=== PATIENT | male | born 1980 | race Hispanic/Latino ===

== ENCOUNTER 2018-03-18 12:55 | Emergency (ER) | payer MEDICAID, OTHER ==
[2018-03-18 13:04] VITALS: BMI 38.3
--- NOTE | 2018-03-18 13:24 | C.PDOC ---
History Of Present Illness 37 y/o male, with no significant PMHx, presents to ED for evaluation of right foot 3rd digit blister with purulent discharge. Notes he has had similar presentation in his left foot about a month ago which improved after taking antibiotics. Notes he now has similar symptoms on his right foot for the past few days. Denies trauma, pain, fever, or other complaints. Time Seen by Provider: 03/18/18 13:21 Chief Complaint (Nursing): Lower Extremity Problem/Injury History Per: Patient History/Exam Limitations: no limitations Past Medical History Reviewed: Historical Data, Nursing Documentation, Vital Signs Vital Signs: Last Vital Signs Temp 98.2 F 03/18/18 13:04 Pulse 109 H 03/18/18 13:04 Resp 18 03/18/18 13:04 BP 149/102 H 03/18/18 13:04 Pulse Ox 97 03/18/18 13:04 - Medical History PMH: Anxiety, Depression Denies: Bipolar Disorder, Diabetes, Hepatitis, HIV, HTN, Personality Disorder, Chronic Kidney Disease, Schizophrenia, Seizures, Sexually Transmitted Disease - [facility] Procedures ALCOHOL DETOXIFICATION (12/10/13) DETOXIFICATION SERVICES FOR SUBSTANCE ABUSE TREATMENT (07/06/15) INDIV DAMAGED FREIGHT INSPECTOR FOR SUBSTANCE ABUSE TREATMENT, CONTINUING CARE (07/06/15) Family History: States: Unknown Family Hx - Social History Hx Tobacco Use: No Hx Alcohol Use: No Hx Substance Use: No - Immunization History Hx Tetanus Toxoid Vaccination: No Hx Influenza Vaccination: No Hx Pneumococcal Vaccination: No Review Of Systems Except As Marked, All Systems Reviewed And Found Negative. Constitutional: Negative for: Fever, Chills Skin: Positive for: Other (right foot 3rd digit blister) Neurological: Negative for: Weakness, Numbness Physical Exam - Physical Exam Appears: Non-toxic, No Acute Distress Skin: Warm, Dry, Other (minimal area of erythema to right foot 3rd digit with minimal purulent discharge) Head: Atraumatic, Normacephalic Eye(s): bilateral: Normal Inspection Oral Mucosa: Moist Neck: Normal ROM, Supple Extremity: Normal ROM, No Tenderness, Capillary Refill (less than 2 seconds), No Deformity, No Swelling Pulses: Left Dorsalis Pedis: Normal, Right Dorsalis Pedis: Normal Neurological/Psych: Oriented x3, Normal Speech, Normal Motor, Normal Sensation ED Course And Treatment O2 Sat by Pulse Oximetry: 97 (RA) Pulse Ox Interpretation: Normal Medical Decision Making Medical Decision Making: Plan: Bactrim Quality Assurance Specialist, Dr. Zapata, returned call, he requested picture of patient's right foot. Picture was sent. He agrees with plan to discharge home and followup with him. Disposition - Disposition Referrals: [facility]iatry Clinic [Outside] Disposition: HOME/ ROUTINE Disposition Time: 14:25 Condition: STABLE Additional Instructions: follow up with ink jet operator. return to er with worsening symptoms or concerns. Prescriptions: Sulfamethoxazole/Trimethoprim [Bactrim DS 800 mg-160 mg] 1 tab PO BID #20 tab Instructions: Cellulitis (Skin Infection), Adult (DC) Forms: Thingies (Polish) - Clinical Impression Clinical Impression: Cellulitis - Scribe Statement The provider has reviewed the documentation as recorded by the Scribe KP All medical record entries made by the Scribe were at my direction and personally dictated by me. I have reviewed the chart and agree that the record accurately reflects my personal performance of the history, physical exam, medical decision making, and the department course for this patient. I have also personally directed, reviewed, and agree with the discharge instructions and disposition.
[2018-03-18] MEDS ORDERED: Tmp-Smz 800 mg-160 mg DS Tab PO STA (13:27)
[2018-03-18] MEDS ORDERED: Tmp-Smz 800 mg-160 mg DS Tab ONE (13:34)
[2018-03-18 14:21] VITALS: BP 133/84; PULSE 90; RESP 19; TEMP 97.9
[2018-03-18 14:25] VITALS: O2SAT 97
== END 2018-03-18 14:25 | disposition home or self-care (01) ==
LOC: C.ER 12:55
DX: L03.031 Cellulitis of right toe (principal)